=== PATIENT | male | born 1995 | race Caucasian/White ===

== ENCOUNTER 2021-11-04 05:33 | Emergency (ER) | payer OTHER ==
[2021-11-04] MEDS ORDERED: LIDOCAINE 1%-EPI 1:100000 20 ML MDV SUBQ STA (05:58)
[2021-11-04] MEDS ORDERED: cephALEXin 250 MG CAPSULE PO STA (05:59)
[2021-11-04] MEDS ORDERED: KETOROLAC 30 MG/ML VIAL IM STA (05:59)
--- NOTE | 2021-11-04 06:02 | ED Physician Documentation ---
PD HPI SKIN - Stated complaint Stated Complaint: TAILBONE PX - Chief complaint Chief Complaint: Wound - History obtained from History obtained from: Patient - Additional information Additional information: 26yM p/w swelling and pain gradual onset to midtailbone X 2-3 days, worse with sitting, constant, throbbing, nonradiating, moderate severity. denies fevers, dyschezia, bloody Bm. Review of Systems Constitutional: denies: Fever, Chills Skin: reports: Other (erythema and swelling) PD PAST MEDICAL HISTORY - Past Medical History Past Medical History: Yes HEENT: Other Other Past Medical History: Deviated Septum - Past Surgical History Past Surgical History: Yes HEENT: Other - Present Medications Home Medications: Ambulatory Orders Medication Instructions Recorded Confirmed cephALEXin [Keflex] 500 mg PO Q6H #28 11/04/21 - Allergies Allergies/Adverse Reactions: Allergies Allergy/AdvReac Type Severity Reaction Status Date / Time No Known Drug Allergies Allergy Verified 11/04/21 05:49 - Social History Does the pt smoke?: No Smoking Status: Never smoker Does the pt drink ETOH?: Yes ETOH Use: Beer, Liquor Does the pt have substance abuse?: No - Immunizations Immunizations are current?: Yes - POLST Patient has POLST: No PD ED PE NORMAL - Vitals Vital signs reviewed: Yes - General General: Alert and oriented X 3, No acute distress, Well developed/nourished - HEENT HEENT: Atraumatic, PERRL, EOMI - Neck Neck: Supple, no meningeal sign - Derm Derm: Other (erythema and swelling to area posterior to anus) - Extremities Extremities: No deformity - Neuro Neuro: No motor deficit, No sensory deficit - Psych Psych: Normal mood, Normal affect Results - Vitals Vitals: Vital Signs - 24 hr 11/04/21 05:35 Temperature 36.4 C L Heart Rate 84 Respiratory 16 Rate Blood Pressure 136/83 H O2 Saturation 99 Oxygen O2 Source Room air Procedures - Abscess I&D (location) Buttocks Preparation: Confirmed with ultrasound, Betadine, Alcohol, Lidocaine 1%, With epi Incision: Incised with scalpel, Purulent drainage, Loculations broken, Irrigated, Packed, Culture obtained Other: Pt tolerated well, Dressing applied, Antibiotic prescribed PD MEDICAL DECISION MAKING - ED course ED course: 26yM p/w pilonidal abscess, drained and packed in the ED with antibiotic script provided. patient will f/u for wound check in 48-72 hours. return precautions given. Departure - Departure Disposition: 01 Home, Self Care Clinical Impression: Pilonidal abscess Condition: Good Instructions: ED Abscess IandD Follow-Up: Gordon Barnett MD [Provider Admit Priv/Credential] - Prescriptions: cephALEXin [Keflex] 500 mg PO Q6H #28 Comments: You were seen in the emergency department for pilonidal abscess (pocket of infection near the anus). It was drained and packing was placed. Please take your antibiotics as prescribed and follow up with surgery clinic for a wound check in 48 - 72 hours. If you have trouble getting an appointment then [facility], walk in clinic or urgent care is a good alternative. Return to the ED if you have fever, new or worsening symptoms or other concerns.
[2021-11-04 06:36] VITALS: BP 156/76
== END 2021-11-04 06:35 | disposition home or self-care (01) ==
LOC: ED 05:33
DX: L05.01 Pilonidal cyst with abscess (principal)
CPT/HCPCS: 10061; 87070; 87205; 96372; 99283; A9270